=== PATIENT | male | born 2000 | race Two or more races ===

== ENCOUNTER 2024-08-22 10:05 | Outpatient (REF) | payer MEDICAID, SELFPAY ==
[2024-08-22 11:06] LABS: MANUAL DIFF FLAG NO
[2024-08-22 11:11] LABS: Basophils Absolute Auto 0.1 X10*3/uL (0.0-0.2); Basophils Percent Auto 0.9 % (0-2); Eosinophils Absolute Auto 0.1 X10*3/uL (0.0-0.4); Eosinophils Percent Auto 1.9 % (0-4); Hematocrit 46.6 % (42.0-52.0); Hemoglobin 15.2 g/dl (14.0-18.0); Imm Gran Abs Auto 0.02 X10*3/uL (0.00-0.03); Imm Gran Pct Auto 0.3 % (0.0-0.4); Lymphocytes Absolute Auto 3.2 X10*3/uL (1.2-4.9); Lymphocytes Percent Auto 42.6 % (20-40); Mean Corpuscular HGB Conc 32.6 g/dl (31.0-36.0); Mean Corpuscular Hemoglobin 29.7 pg (27.0-33.0); Mean Corpuscular Volume 91.2 fL (80.0-98.0); Mean Platelet Volume 11.1 fL (9.4-12.4); Monocytes Absolute Auto 0.6 X10*3/uL (0.1-1.2); Monocytes Percent Auto 8.4 % (2-11); Neutrophils Absolute Auto 3.4 x10*3/uL (2.0-8.3); Neutrophils Percent Auto 45.9 % (45-73); Platelet Count 303 X10*3/uL (160-400); Red Blood Count 5.11 X10*6/uL (4.60-5.80); White Blood Count 7.4 X10*3/uL (4.8-10.8)
[2024-08-22 11:22] LABS: Estimated Average Glucose 103 mg/dL; Hemoglobin A1C 130.6439 umol/L; Hemoglobin A1c % 5.2 % (<6.0)
[2024-08-22 11:48] LABS: Alanine Aminotransferase 50 U/L (0-40); Albumin Level 4.7 g/dL (3.5-5.0); Alkaline Phosphatase 80 U/L (39-117); Anion Gap 12 (12-20); Aspartate Amino Transferase 30 U/L (5-37); Bilirubin Total 0.9 mg/dL (0.0-1.0); Blood Urea Nitrogen 14 mg/dL (9-16); C Reactive Protein 0.27 mg/dL (< or = 0.50); Calcium 9.7 mg/dL (8.4-10.2); Carbon Dioxide 27 mmol/L (22-29); Chloride 107 mmol/L (96-108); Estimated Glomerular Filt Rate > 60; Glucose Random 92 mg/dL (60-115); Potassium 4.5 mmol/L (3.3-5.1); Sodium 141 mmol/L (135-145); Total Protein 7.6 g/dL (6.5-8.0)
[2024-08-22 11:52] LABS: Erythrocyte Sedimentation Rate 3 MM/HR (0-15)
[2024-08-22 11:57] LABS: Ferritin 105 ng/mL (20-250)
== END 2024-08-22 10:06 | disposition home or self-care (01) ==
LOC: HO.HHCL 10:05
PROVIDERS: Visit Provider Nurse Practitioner Family
DX: G44.209 Tension-type headache, unspecified, not intractable (principal)
CPT/HCPCS: 36415; 80053; 82728; 83036; 85025; 85652; 86140

== ENCOUNTER 2024-12-18 10:06 | Outpatient (REF) | payer MEDICAID, SELFPAY ==
--- NOTE | ~2024-12-18 | XR_ITS ---
EXAMINATION: XR SACRUM AND COCCYX CLINICAL INFORMATION: low back and tailbone pain s/p fall COMPARISON: None available. TECHNIQUE: 2 views of the sacrum and 2 views of the coccyx were obtained. FINDINGS: Bowel gas and stool projected over the sacrum and coccyx on the frontal view, limiting evaluation. Bilateral hip joint spaces are maintained, without evidence of acute fracture or dislocation.. SI joints and symphysis pubis intact. Pelvic ring is intact. Limited evaluation sacrum and coccyx on the frontal view by overlapping bowel gas and stool. On the lateral projection, no acute displaced fractures identified. XR/XR sacrum coccyx min 2V IMPRESSION: No radiographic evidence of acute fracture or malalignment. Bowel gas and stool limits evaluation of the sacrum and coccyx. No displaced fractures identified. Follow-up/additional imaging as clinically indicated. Electronically signed by: Sergey Hawthorne MD 12/18/2024 12:30 PM EDT
--- NOTE | ~2024-12-18 | XR_ITS ---
EXAMINATION: XR LUMBOSACRAL SPINE CLINICAL INFORMATION: low back and tailbone pain s/p fall COMPARISON: None available. TECHNIQUE: 4 views FINDINGS: No evidence of acute fracture or spondylolisthesis.. Vertebral body heights are maintained. Disc spaces are maintained. SI joints are symmetric. No worrisome lytic or blastic lesions. Paraspinal soft tissues appear unremarkable. No abnormal soft tissue calcification... XR/XR lumbar spine 2-3V IMPRESSION: No radiographic evidence of acute fracture or subluxation. Electronically signed by: Sergey Hawthorne MD 12/18/2024 12:31 PM EDT
== END 2024-12-18 10:07 | disposition home or self-care (01) ==
LOC: HO.HHCX 10:06
PROVIDERS: Visit Provider Family Medicine
DX: M54.50 Low back pain, unspecified (principal)
CPT/HCPCS: 72100; 72220

== ENCOUNTER → 2024-12-18 10:06 | Outpatient (BNV) | payer MEDICAID, SELFPAY | PROVIDERS: Visit Provider Radiology Diagnostic Ultrasound | DX: M54.50 Low back pain, unspecified (principal); M53.3 Sacrococcygeal disorders, not elsewhere classified | CPT/HCPCS: 72100; 72220 ==